=== PATIENT | female | born 1995 | race Caucasian/White ===

== ENCOUNTER 2021-08-31 15:31 | Emergency (ER) | payer BC, SELFPAY ==
[2021-08-31 15:38] VITALS: BP 125/75; PULSE 90; RESP 16; TEMP 36.4; O2SAT 100
--- NOTE | 2021-08-31 17:48 | PC.NURSE ---
No answer when called.
--- NOTE | 2021-08-31 18:03 | PC.NURSE ---
No answer when called.
== END 2021-09-01 04:40 | disposition left against medical advice (07) ==
DX: T20.26XA Burn of second degree of forehead and cheek, initial encounter (principal); T31.0 Burns involving less than 10% of body surface
CPT/HCPCS: 99199